=== PATIENT | female | born 1965 | race Caucasian/White ===

== ENCOUNTER → 2017-02-06 | Outpatient (CLI) | payer OTHER ==
[~2017-02-06] MED LIST: AMOXICILLIN 8751 TAB PO; RT ADVAIR 128 DISKUS IH; SINGULAIR 110 MG/TAB PO; ZYRTEC 10MG10 MG PO
== END ==
LOC: MC.RAD 08:54
DX: Z12.31 Encounter for screening mammogram for malignant neoplasm of breast (principal); Z80.3 Family history of malignant neoplasm of breast

== ENCOUNTER 2018-03-31 12:55 | Outpatient (CLI) | payer OTHER ==
[~2018-03-31] VITALS: Ht 160 cm; Wt 58.4 kg
[2018-03-31] MEDS ORDERED: QVAR0.04 MG/AC IH (13:10)
[2018-03-31 13:18] VITALS: BP 128/41; PULSE 61; TEMP 97.8
== END 2018-03-31 16:00 | disposition home or self-care (01) ==
LOC: EUO 12:55
DX: J82 Pulmonary eosinophilia, not elsewhere classified (principal)
CPT/HCPCS: J2182

== ENCOUNTER 2018-04-07 15:01 | Outpatient (RCR) | payer OTHER ==
[~2018-04-07 15:01] MED LIST changes: +QVAR0.04 MG/AC IH
== END 2018-04-21 15:32 | disposition home or self-care (01) ==
LOC: WSOH 15:01
DX: M77.11 Lateral epicondylitis, right elbow (principal); X50.0XXD Overexertion from strenuous movement or load, subsequent encounter; Y99.0 Civilian activity done for income or pay; Z79.1 Long term (current) use of non-steroidal anti-inflammatories (NSAID); Z79.899 Other long term (current) drug therapy; Z87.891 Personal history of nicotine dependence
CPT/HCPCS: A6549; J1030

== ENCOUNTER → 2018-05-03 | Outpatient (CLI) | payer OTHER ==
[~2018-05-03] MED LIST changes: +SEPTRA DS 8001 TAB PO
[2018-05-03 16:18] VITALS: BP 133/74; PULSE 78; TEMP 98.2
== END ==
LOC: EUO 15:25
DX: J82 Pulmonary eosinophilia, not elsewhere classified (principal)
CPT/HCPCS: J2182

== ENCOUNTER 2018-05-14 13:54 | Outpatient (RCR) | payer OTHER ==
[2018-07-02] MEDS ORDERED: PRILOSEC 20MG20 MG PO (15:53)
== END 2018-07-20 | disposition home or self-care (01) ==
LOC: WSOH
DX: M77.11 Lateral epicondylitis, right elbow (principal); M77.8 Other enthesopathies, not elsewhere classified; Z87.891 Personal history of nicotine dependence; Z79.899 Other long term (current) drug therapy

== ENCOUNTER 2018-05-31 15:04 | Outpatient (CLI) | payer OTHER ==
[~2018-05-31] VITALS: Ht 160 cm; Wt 58.8 kg
[2018-05-31 15:21] VITALS: BP 119/59; PULSE 77; TEMP 98.1
== END 2018-05-31 16:50 | disposition home or self-care (01) ==
LOC: EUO 15:04
DX: J82 Pulmonary eosinophilia, not elsewhere classified (principal); Z79.899 Other long term (current) drug therapy
CPT/HCPCS: J2182

== ENCOUNTER 2018-07-02 14:57 | Outpatient (CLI) | payer OTHER ==
[~2018-07-02] VITALS: Ht 160 cm; Wt 59.4 kg
[2018-07-02] MEDS ORDERED: PRILOSEC 20MG20 MG PO (15:53)
[2018-07-02 16:00] VITALS: BP 139/51; PULSE 63; TEMP 97.8
== END 2018-07-02 16:24 | disposition home or self-care (01) ==
LOC: EUO 14:57
DX: J82 Pulmonary eosinophilia, not elsewhere classified (principal); Z79.899 Other long term (current) drug therapy
CPT/HCPCS: J2182

== ENCOUNTER 2018-08-03 15:20 | Outpatient (CLI) | payer OTHER ==
[~2018-08-03] VITALS: Ht 160 cm; Wt 60.0 kg
[~2018-08-03 15:20] MED LIST changes: +PRILOSEC 20MG20 MG PO; +QVAR REDIHALE10.6 GM IH; -QVAR0.04 MG/AC IH
[2018-08-03 15:34] VITALS: BP 127/65; PULSE 80; TEMP 97.8
== END 2018-08-03 18:00 ==
LOC: EUO 15:20
DX: J82 Pulmonary eosinophilia, not elsewhere classified (principal); Z79.899 Other long term (current) drug therapy
CPT/HCPCS: J2182

== ENCOUNTER 2018-09-01 15:33 | Outpatient (CLI) | payer OTHER ==
[~2018-09-01] VITALS: Ht 160 cm; Wt 60.0 kg
[2018-09-01] MEDS ORDERED: VASOTEC 5MG5 MG/TAB PO (15:58)
[2018-09-01 16:00] VITALS: BP 122/63; PULSE 74; TEMP 98.1
== END 2018-09-01 16:42 | disposition home or self-care (01) ==
LOC: EUO 15:33
DX: J82 Pulmonary eosinophilia, not elsewhere classified (principal); Z79.899 Other long term (current) drug therapy
CPT/HCPCS: J2182

== ENCOUNTER 2018-11-01 14:02 | Outpatient (CLI) | payer OTHER ==
[~2018-11-01] VITALS: Ht 160 cm; Wt 59.6 kg
[~2018-11-01 14:02] MED LIST changes: +VASOTEC 5MG5 MG/TAB PO
[2018-11-01 14:14] VITALS: BP 145/63; PULSE 75; TEMP 97.4
== END 2018-11-01 15:08 | disposition home or self-care (01) ==
LOC: EUO 14:02
DX: J82 Pulmonary eosinophilia, not elsewhere classified (principal); Z79.899 Other long term (current) drug therapy
CPT/HCPCS: J2182

== ENCOUNTER 2018-12-01 13:57 | Outpatient (CLI) | payer OTHER ==
[~2018-12-01] VITALS: Ht 160 cm; Wt 60.0 kg
[2018-12-01 14:20] VITALS: BP 121/58; PULSE 71; TEMP 98.1
--- NOTE | 2018-12-01 15:02 | NUR ---
Pt alan Rodriguez well. Pt left unit per ambulation.
== END 2018-12-01 15:03 | disposition home or self-care (01) ==
LOC: EUO 13:57
DX: J82 Pulmonary eosinophilia, not elsewhere classified (principal); Z79.899 Other long term (current) drug therapy
CPT/HCPCS: J2182

== ENCOUNTER 2019-02-28 07:07 | Day surgery (SDC) | payer OTHER ==
[2019-02-28] VITALS (11 sets, daily range): BP systolic 81–138; BP diastolic 55–62; PULSE 57–77; TEMP 97.4
[~2019-02-28] VITALS: Ht 160 cm; Wt 61.3 kg
[2019-02-28 07:43] LABS: HEMOGLOBIN 13.6 g/dl (12.5-16.0); MEAN CELL VOLUME 96 fl (80.0-100.0); MEAN CORPUSCULAR HEMOGLOBIN 33 pg (27.0-31.0); MEAN CORPUSCULAR HGB CONC 34 g/dl (33.0-37.0); PLATELET COUNT 290 K/mm3 (130-400); RED BLOOD COUNT 4.17 M/mm3 (4.10-5.30); REDCELL DISTRIBUTION WIDTH-CV 13.1 % (11.5-14.5)
[2019-02-28 08:07] LABS: INR 1.1 (0.8-3.0)
[2019-02-28 08:23] LABS: CALCIUM 9.5 mg/dL (8.4-10.2); CREATININE, serum 0.76 (0.52-1.25); POTASSIUM 4.2 mmol/L (3.4-5.0)
--- NOTE | 2019-02-28 09:30 | NUR ---
Pt to procedure,report to Christine Sanchez.
--- NOTE | 2019-02-28 09:50 | NUR ---
SEE MERGE FOR ALL MEDICATION ADMIN TIMES AND INTRA AND POST SEDATION ASSESSMENT/RASS SCORE
--- NOTE | 2019-02-28 15:04 | NUR ---
Discharge instructions given to pt.Pt verbalizes understanding.INT removed,catheter tip intact.Pt escortedout via wheelchair by this nurse.
== END 2019-02-28 15:04 | disposition home or self-care (01) ==
LOC: COL.CAR 07:07
PROVIDERS: Internal Medicine Cardiovascular Disease
DX: R07.89 Other chest pain (principal); R06.09 Other forms of dyspnea; J45.909 Unspecified asthma, uncomplicated; I34.0 Nonrheumatic mitral (valve) insufficiency; E78.2 Mixed hyperlipidemia; Z88.1 Allergy status to other antibiotic agents; Z87.891 Personal history of nicotine dependence; Z82.49 Family history of ischemic heart disease and other diseases of the circulatory system
CPT/HCPCS: C1760; C1894; J1644; J2250; J3010; Q9967